=== PATIENT | female | born 1950 | race Caucasian/White ===

== ENCOUNTER 2022-09-08 11:31 | Day surgery (SDC) | payer BC ==
[~2022-09-08] VITALS: Ht 162.6 cm; Wt 98.6 kg
[2022-09-08 11:48] VITALS: BP 135/53
[2022-09-08] MEDS ORDERED: normal saline 1000ml 1,000 ML IV SCH (12:00)
[2022-09-08] MEDS ORDERED: MIDAZolam 1mg/ml 10ml vial IV ONE (12:00)
[2022-09-08] MEDS ORDERED: fentaNYL/PF 50MCG/1 ML 2ML syringe IV ONE (12:00)
[2022-09-08] MEDS ORDERED: ROSU40TA22 PO (12:03)
[2022-09-08] MEDS ORDERED: LORA10TA7 PO (12:03)
[2022-09-08] MEDS ORDERED: CARV6.2553 PO (12:03)
[2022-09-08] MEDS ORDERED: MONT-40 PO (12:03)
[2022-09-08] MEDS ORDERED: POTA8CAP20 PO (12:03)
[2022-09-08] MEDS ORDERED: RANO500T3 PO (12:03)
[2022-09-08] MEDS ORDERED: ISOS120T13 PO (12:03)
[2022-09-08] MEDS ORDERED: FURO40TA4 PO (12:03)
[2022-09-08] MEDS ORDERED: NITR0.4T51 SL (12:03)
[2022-09-08] MEDS ORDERED: OMEP40CA21 PO (12:03)
[2022-09-08] MEDS ORDERED: EZET10TA48 PO (12:03)
[2022-09-08] MEDS ORDERED: CETI10TA15 PO (12:03)
[2022-09-08] MEDS ORDERED: FLUT16SP11 BOTHNARES (12:03)
[2022-09-08] MEDS ORDERED: FAMO40TA58 PO (12:03)
[2022-09-08] MEDS ORDERED: BENA40TA90 PO (12:03)
[2022-09-08] MEDS ORDERED: ASPI81TA52 PO (12:03)
[2022-09-08] MEDS ORDERED: PERFLUTREN PROTEIN-A MICROSPHR (Optison) 0.22 MG/ML 3ML VIAL IV ONE (12:55)
[2022-09-08 13:25] VITALS: BP 135/53
[2022-09-08 13:45] VITALS: BP 135/53
== END 2022-09-08 14:05 | disposition home or self-care (01) ==
LOC: SSTAY O 11:31
PROVIDERS: ATTEND Student in an Organized Health Care Education/Training Program
DX: I25.5 Ischemic cardiomyopathy (principal); I51.7 Cardiomegaly; I25.2 Old myocardial infarction; I10 Essential (primary) hypertension; I25.10 Atherosclerotic heart disease of native coronary artery without angina pectoris; I73.9 Peripheral vascular disease, unspecified; Z79.899 Other long term (current) drug therapy; Z88.6 Allergy status to analgesic agent
CPT/HCPCS: 93308; J7030; Q9956; A4620